=== PATIENT | female | born 1950 | race Caucasian/White ===

== ENCOUNTER → 2019-11-10 | Outpatient (CLI) | payer MEDICARE ==
[2019-11-10 12:10] LABS: Basophils % (A) 0 %; Eosinophils # (A) 0.2 k/uL (0-0.7); Eosinophils % (A) 2 %; HCT 43.9 % (34.0-46.0); HGB 14.2 gm/dL (11.4-16.0); Lymphocytes % (A) 24 %; MCH 30.4 pg (25.0-35.0); MCHC 32.5 g/dL (31.0-37.0); MCV 93.7 fL (80.0-100.0); Mean Platelet Volume 8.4; Monocytes # (A) 0.4 k/uL (0-1.0); Monocytes % (A) 5 %; Neutrophils # (A) 5.7 k/uL (1.3-7.7); Neutrophils % (A) 68 %; Platelet Count 742 k/uL (150-450); RBC 4.68 m/uL (3.80-5.40); RDW 14.1 % (11.5-15.5); WBC 8.4 k/uL (3.8-10.6)
[2019-11-10 15:45] LABS: African American GFR (CKD) 74.6 (60.0-200.0); Anion Gap 13.4 mmol/L (4.00-12.00); BUN/Creat Ratio 25.56 Ratio (12.00-20.00); Calcium 10.1 mg/dL (8.7-10.3); Carbon Dioxide 20.6 mmol/L (21.6-31.8); Non-African American GFR(CKD) 64.3 (60.0-200.0)
== END | disposition home or self-care (01) ==
LOC: LABWHC1 11:09
PROVIDERS: ATTEND Urology
DX: Z01.812 Encounter for preprocedural laboratory examination (principal); N20.1 Calculus of ureter; E11.9 Type 2 diabetes mellitus without complications
CPT/HCPCS: 36415; 80048; 85025; 87086

== ENCOUNTER 2019-11-12 12:41 | Day surgery (SDC) | payer MEDICARE ==
[2019-11-11 09:16] VITALS: BMI 35.4
--- NOTE | 2019-11-11 23:05 | P.HPIHPCON ---
History of Present Illness H&P Date: 11/12/19 Chief Complaint: Left ureteral stone Ms El is 69 yo female with hx of 5mm left ureteral stone, she is S/P left ureteral stent placement for septic stone. She presents today for definitive stone management. I discussed with her all surgical option. She agreed to proceed with Ureteroscopy. Discussed risk of bleeding, infection, and ureteral perforation. Discussed risk from anesthesia which includes heart attack, stroke, blood clots and even . She understood all risks agreed to proceed with left sided ureteroscopy, with holmium laser lithotripsy and stent exchange Consent for Procedure: I have explained the operation/procedure to the patient, including the risks, benefits, side effects, alternative therapies (including not receiving the proposed treatment or service), the likelihood of the patient achieving his/her goals, and potential recuperation problems for the procedure/sedation/analgesia, as well as any blood products, if indicated. I also explained to the patient the risks, benefits and side effects of the alternatives, as well as the risks related to not receiving the proposed procedure, care, treatment, or services. - Constitutional Constitutional: Denies chills, Denies fever - Cardiovascular Cardiovascular: Denies chest pain, Denies leg edema Past Medical History Past Medical History: Coronary Artery Disease (CAD), Diabetes Mellitus, GERD/Reflux, Hyperlipidemia, Hypertension, Myocardial Infarction (HI), Osteoarthritis (OA) Additional Past Medical History / Comment(s): UTI-on Rx, kidney stones, neuropathy-feet and legs, Last Myocardial Infarction Date:: 1992 History of Any Multi-Drug Resistant Organisms: None Reported Past Surgical History: Appendectomy, Heart Catheterization With Stent, Hysterectomy Additional Past Surgical History / Comment(s): one cardiac stent, left kidney stent Past Anesthesia/Blood Transfusion Reactions: No Reported Reaction Date of Last Stent Placement:: 1992 Smoking Status: Former smoker - Past Family History Mother Family Medical History: No Reported History Medications and Allergies Home Medications Medication Instructions Recorded Confirmed Type Aspirin 325 mg PO DAILY 11/11/19 11/11/19 History Cefuroxime Axetil [Ceftin] 500 mg PO DAILY 11/11/19 11/11/19 History Fenofibrate 160 mg PO DAILY 11/11/19 11/11/19 History Fish Oil/Dha/Epa [Fish Oil 1,200 1 each PO DAILY 11/11/19 11/11/19 History mg Fish Oil] Losartan(Dose Unknown) 1 tab PO HS 11/11/19 11/11/19 History Metoprolol(Dose Unknown) 1 tab PO QAM 11/11/19 11/11/19 History Pravastatin(Dose Unknown) 1 tab PO HS 11/11/19 11/11/19 History Tamsulosin [Flomax] 0.4 mg PO PC-SUPPER 11/11/19 11/11/19 History Vitamin D(Dose Unknown) 1 tab PO DAILY 11/11/19 11/11/19 History metFORMIN HCL [Glucophage] 500 mg PO BID 11/11/19 11/11/19 History rOPINIRole HCL [Requip] 2 mg PO HS 11/11/19 11/11/19 History traMADol HCL [Ultram] 50 mg PO BID PRN 11/11/19 11/11/19 History Allergies Allergy/AdvReac Type Severity Reaction Status Date / Time lisinopril Allergy Cough Verified 11/11/19 09:00 sulfamethoxazole Allergy Abdominal Verified 11/11/19 09:00 [From Bactrim] Pain,diarrhea trimethoprim [From Bactrim] Allergy Abdominal Verified 11/11/19 09:00 Pain,diarrhea Surgical - Exam - General well developed, well nourished, no distress - Respiratory normal expansion, normal respiratory effort - Abdomen Abdomen: soft, non tender - Psychiatric oriented to time, oriented to person, oriented to place Assessment and Plan Assessment: 69 yo female with hx of left sided ureteral stone -Cysto Left sided ureteroscopy, with holmium laser lithotripsy and stent exchange
[~2019-11-12 12:41] MED LIST: DEXAMETHASONE SOD PHOSPHATE 10 MG/ML 1 ML VIAL IV ONE; GENTAMICIN 100 MG in SODIUM CHLORIDE 0.9% 100 ML IVPB ONE; HYDROmorphone 0.5 MG/0.5 ML SYRINGE IVP PRN; LACTATED RINGERS 1,000 ML IV SCH; MIDAZOLAM 2 MG/2 ML VIAL IV PRN; ONDANSETRON 4 MG/2 ML VIAL IVP ONE
--- NOTE | 2019-11-12 13:11 | XR ---
KUB HISTORY: Left kidney stone, preop Frontal KUB and 2 images There is a double-J ureteral stent on the left. There is calcification overlying the proximal aspect of the stent at the approximate L3 transverse process level measuring approximately 1 cm. Vascular ca lcifications are noted within the pelvis. Bone mineralization is normal. No evident obstruction or pn eumoperitoneum. IMPRESSION: Indwelling double-J stent, left ureteral calculus
[2019-11-12 14:02] LABS: Glucose,Whole Blood 122 mg/dL (75-99)
[2019-11-12] MEDS ORDERED: fentaNYL (PF) 50 MCG/ML 2 ML AMP ONE (15:30)
[2019-11-12] MEDS ORDERED: SUCCINYLCHOLINE CHLORIDE 100 MG/5 ML SYR IV ONE (15:30)
[2019-11-12] MEDS ORDERED: MIDAZOLAM 2 MG/2 ML VIAL ONE (15:30)
[2019-11-12] MEDS ORDERED: PROPOFOL 10 MG/ML 20 ML VIAL IV ONE (15:30)
[2019-11-12] MEDS ORDERED: LIDOCAINE 1% INJ 10MG/ML (20 ML MDV) ONE (15:30)
[2019-11-12] MEDS ORDERED: ePHEDrine SULFATE/0.9% NACL/PF 50 MG/5 ML SYRINGE IV ONE (15:30)
[2019-11-12] MEDS ORDERED: IOPAMIDOL-370 50ML BTL MISCELLANE ONE (16:03)
[2019-11-12] MEDS ORDERED: LACTATED RINGERS 1,000 ML IV ONE (16:33)
--- NOTE | 2019-11-12 16:48 | P.OP ---
Date of Procedure: 11/12/19 Preoperative Diagnosis: Left ureteral calculi Postoperative Diagnosis: same Procedure(s) Performed: cystoscopy, left ureteroscopy, retrograde pyelogram,holmium laser lithotripsy, stone basketing and stent exchange Implants: 6-Slovenian by 24 cm stent Anesthesia: SANTA Surgeon: Huy Chino Pathology: other (ureteral stone for chemical analysis) Condition: stable Indications for Procedure: Ms El is 69 yo female with hx of 5mm left ureteral stone, she is S/P left ureteral stent placement for septic stone. She presents today for definitive stone management. I discussed with her all surgical option. She agreed to proceed with Ureteroscopy. Discussed risk but not limited to bleeding, infection, and ureteral perforation. Discussed risk from anesthesia which includes heart attack, stroke, blood clots and even . She understood all risks agreed to proceed with left sided ureteroscopy, with holmium laser lithotripsy and stent exchange Operative Findings: small distal ureteral stone, an additional larger proximal ureteral stone Description of Procedure: she was brought to the operating room general anesthesia was induced. She was prepped and draped in sterile fashion placed in dorsal lithotomy position. Cystoscope fitted with a 22 sheath was inserted per urethra cystoscopy was performed which showed no abnormality bladder. This stent grasper was used to remove the stents which was brought to the meatus, a 0.035 sensor wire was a dvanced through the stent and into the renal pelvis this was confirmed on fluoroscopy. a 6-Slovenian open-ended catheter was advanced over the wire, retrograde pyelogram was performed which showed a filling defect in the proximal ureter at the level of the stone. Next a semi-rigid ureteroscope was inserted through the urethra and advanced up the left ureteral orifice, ureteroscopy was performed. a smaller distal ureteral stone was encountered, this was basketed using these ZeroTip stone basket and removed. The ureteroscope was reinserted and advanced up to the proximal ureter at this time a large stone was encountered in the proximal ureter. Using the holmium laser the stone was fragmented into smaller fragments. The fragment was removed using the ZeroTip stone basket. Repeat ureteroscopy showed no injury to the ureter or any additional ureteral stone. A sensor wire was advanced through the ureteroscope into the renal pelvis, the ureteroscope was withdrawn with the wire in place. N ext a 65-90-Eojnxw access sheath was advanced over the wire and into to the renal pelvis. Next a flexible ureteroscope was advanced through the access sheath. Renoscopy was performed which showed no additional stones in the renal pelvis or within the calyces. Pullback ureteroscopy was performed which showed no additional stones in the ureter or injury to the ureter. Next a 0.035 sensor wire was advanced up the left ureter ureter. A ureteral stents was passed over the wire, the proximal curl was visualized under fluoroscopy and the distal curl was visualized using the cystoscope. The bladder was emptied and the end of the case. The stones were sent for stone analysis, the patient was awakened from anesthesia and taken to recovery in stable condition
[2019-11-12 17:01] VITALS: TEMP 98.3
[2019-11-12 17:06] VITALS: RESP 16
[2019-11-12 17:53] VITALS: BP 129/62; PULSE 62
--- NOTE | 2019-11-13 08:20 | FL ---
Fluoroscopy INDICATION: Pain FINDINGS: Fluoroscopy time: 12 seconds. Images obtained: 4. IMPRESSIONS: 1. Documentation of fluoroscopy.
== END 2019-11-12 18:12 | disposition home or self-care (01) ==
LOC: OR 12:41
PROVIDERS: ATTEND Urology
DX: N20.1 Calculus of ureter (principal); I25.10 Atherosclerotic heart disease of native coronary artery without angina pectoris; I10 Essential (primary) hypertension; E78.5 Hyperlipidemia, unspecified; I25.2 Old myocardial infarction; E11.42 Type 2 diabetes mellitus with diabetic polyneuropathy; K21.9 Gastro-esophageal reflux disease without esophagitis; M19.90 Unspecified osteoarthritis, unspecified site; Z87.442 Personal history of urinary calculi; Z90.49 Acquired absence of other specified parts of digestive tract; Z98.890 Other specified postprocedural states; Z90.710 Acquired absence of both cervix and uterus; Z95.5 Presence of coronary angioplasty implant and graft; Z87.891 Personal history of nicotine dependence; Z79.82 Long term (current) use of aspirin; Z79.84 Long term (current) use of oral hypoglycemic drugs; Z79.899 Other long term (current) drug therapy; Z88.8 Allergy status to other drugs, medicaments and biological substances; Z88.2 Allergy status to sulfonamides
CPT/HCPCS: 52356; 82365; 74018; C2625; C1769; C1894; C1758; J2250; J0690; J2001; J3010; J1580; J0330; J2704; Q9967

== ENCOUNTER → 2020-02-23 | Outpatient (CLI) | payer MEDICARE ==
--- NOTE | 2020-02-23 10:35 | XR ---
EXAMINATION TYPE: XR chest 2V DATE OF EXAM: 02/23/2020 COMPARISON: NONE HISTORY: Cough. Presurgical study. TECHNIQUE: Frontal and lateral views of the chest are obtained. FINDINGS: There is no focal air space opacity, pleural effusion, or pneumothorax seen. The cardiac silhouette size is within normal limits with atherosclerotic change in the aortic knob. The osseous structures are intact. IMPRESSION: No acute cardiopulmonary process.
[2020-02-23 10:50] LABS: Basophils # (A) 0.1 k/uL (0-0.2); Basophils % (A) 1 %; Eosinophils # (A) 0.2 k/uL (0-0.7); Eosinophils % (A) 2 %; HCT 49.1 % (34.0-46.0); HGB 16.1 gm/dL (11.4-16.0); Lymphocytes # (A) 2.2 k/uL (1.0-4.8); Lymphocytes % (A) 28 %; MCH 30.4 pg (25.0-35.0); MCHC 32.8 g/dL (31.0-37.0); MCV 92.9 fL (80.0-100.0); Mean Platelet Volume 7.5; Monocytes # (A) 0.4 k/uL (0-1.0); Monocytes % (A) 6 %; Neutrophils # (A) 4.6 k/uL (1.3-7.7); Neutrophils % (A) 61 %; Platelet Count 428 k/uL (150-450); RBC 5.29 m/uL (3.80-5.40); RDW 13.4 % (11.5-15.5); WBC 7.6 k/uL (3.8-10.6)
[2020-02-23 11:04] LABS: Calcium 10.1 mg/dL (8.4-10.2); Potassium 4.9 mmol/L (3.5-5.1)
== END | disposition home or self-care (01) ==
LOC: RADXRMAIN 10:06
PROVIDERS: ATTEND Urology
DX: Z01.818 Encounter for other preprocedural examination (principal); N81.9 Female genital prolapse, unspecified; N39.46 Mixed incontinence; I10 Essential (primary) hypertension; R05 Cough; R35.0 Frequency of micturition
CPT/HCPCS: 36415; 71046; 80048; 85025; 87086; 93005

== ENCOUNTER 2020-03-02 10:49 | Inpatient (IN) | payer MEDICARE ==
[2020-02-29 10:11] VITALS: BMI 35.3
[~2020-03-02 10:49] MED LIST changes: -GENTAMICIN 100 MG in SODIUM CHLORIDE 0.9% 100 ML IVPB ONE; -HYDROmorphone 0.5 MG/0.5 ML SYRINGE IVP PRN; -LACTATED RINGERS 1,000 ML IV SCH; -MIDAZOLAM 2 MG/2 ML VIAL IV PRN; +ONDANSETRON 4 MG/2 ML VIAL IVP PRN
[2020-03-02 11:38] LABS: Glucose,Whole Blood 109 mg/dL (75-99)
[2020-03-02] MEDS ORDERED: LACTATED RINGERS 1,000 ML IV ONE ×3 (13:41→16:22)
[2020-03-02] MEDS ORDERED: ROCURONIUM BROMIDE 10 MG/ML 5 ML VIAL IV ONE (13:42)
[2020-03-02] MEDS ORDERED: SUCCINYLCHOLINE CHLORIDE 100 MG/5 ML SYR IV ONE (13:42)
[2020-03-02] MEDS ORDERED: MIDAZOLAM 2 MG/2 ML VIAL ONE (13:42)
[2020-03-02] MEDS ORDERED: PROPOFOL 10 MG/ML 20 ML VIAL IV ONE (13:42)
[2020-03-02] MEDS ORDERED: HYDROmorphone (PF) 1 MG/ML ONE (13:42)
[2020-03-02] MEDS ORDERED: LIDOCAINE 1% INJ 10MG/ML (20 ML MDV) ONE (13:42)
[2020-03-02] MEDS ORDERED: PHENYLEPHRINE-0.9% NACL SYG 1 MG/10 ML SYRINGE ONE (13:42)
[2020-03-02] MEDS ORDERED: NEOSTIGMINE 1 MG/ML 10 ML VIAL ONE (13:42)
[2020-03-02] MEDS ORDERED: GLYCOPYRROLATE 0.2 MG/ML 2 ML VIAL ONE (13:42)
[2020-03-02] MEDS ORDERED: fentaNYL (PF) 50 MCG/ML 2 ML AMP ONE (13:42)
[2020-03-02] MEDS ORDERED: BUPIVACAINE (PF) 0.25% 30 ML VIAL SQ ONE ×3 (14:16→14:55)
--- NOTE | 2020-03-02 16:12 | P.OP ---
Date of Procedure: 03/02/20 Preoperative Diagnosis: Grade 3 midline cystocele and prolapse Postoperative Diagnosis: Grade 3 midline cystocele and prolapse Procedure(s) Performed: Robotic sacral colpopexy Implants: Y-shaped mesh Anesthesia: SANTA Surgeon: Jason Henderson Estimated Blood Loss (ml): 50 IV fluids (ml): 800 Urine output (ml): 100 Pathology: none sent Condition: stable Disposition: PACU Indications for Procedure: Prolapse of bladder Operative Findings: Moderate prolapse of the bladder into the vagina. Description of Procedure: Kayleen El was seen in the office for grade 4 midline cystocele and pelvic organ prolapse. She elected to undergo a robotic sacral colpopexy. All risks and complications were explained to her and a written informed consent was obta ined. She was taken to the OR and administered general anesthesia and placed in lithotomy position. She was given a Trendelenburg position. A Veress needle was used to gain access to the peritoneum and pneumoperitoneum was established to 20 mmHg. A 8 mm midline robotic camera port was placed. A 30 camera was introduced into the abdomen and multiple adhesions were noticed in the midline with omentum, and in the right lateral wall with small bowel and ascending colon. 3 additional 8 mm ports were placed forward to working arms and a fourth arm. A 12 mm assistant sales director port and 5 mm suction port was also placed. The surgery was started by performing adhesiolysis using monopolar scissors and fenestrated bipolar. All the omental adhesions were lysed and care was taken to maintain hemostasis. The the cecum and ascending colon was also mobilized and the distal small bowel was freed in the midline. Using a vaginal sizer with an assistant sales director placing upward traction on the vagina, the vagina was completely dissected from the bladder anteriorly. The dissection was carried inferiorly until at least 4-5 cm of vaginal muscle was exposed. Care was taken not to enter the bladder. Attention was then directed to the posterior vaginal wall and it was mobilized from the rectum for a similar length. The posterior dissection was carried down to the perineal body. Attention was then directed to the sacral promontory. The peritoneum over the sacral promontory was incised and the sacral promontory bone was completely exposed. The peritoneal incision was carried inferiorly to the vaginal incision taking care to protect the ureter and vessels. A Y-shaped mesh was then introduced into the abdomen and the limbs of the Y were cut to appropriate length. The posterior mesh was sutured to the posterior wall of the vagina with 4 separate sutures of Ethibond taking care not to go through the vaginal wall. Once the posterior mesh was securely placed, the anterior Lembert the mesh was sutured to the anterior vaginal wall with 6 interrupted sutures. The sizer was then removed from the vagina and good secure placement of the mesh on the vagina wall was confirmed. The assistant sales director was then asked to place a firm superior traction of the vagina with the sizer, and a single Lembert the mesh was sutured to the sacral promontory with 6 interrupted sutures of Ethibond. Hemostasis was confirmed. The sizer was removed from the vagina and good fixation of the vagina was confirmed to the sacral promontory. The peritoneum was then closed using 2 we'll continuous running sutures to completely exclude the mesh from the peritoneal cavity. Prior to closing the peritoneum the bladder was insufflated to 150 mL of saline and absence of any bladder perforation was confirmed. All the sutures were removed, all the mesh pieces were removed and a final count was obtained. The ports of the robot were removed and abdominal incisions were closed with 4-0 Monocryl. A vaginal examination was performed to confirm resolution of the cystocele and a vaginal pack was placed. The patient was taken to recovery in stable condition
[2020-03-02 16:34] LABS: Glucose,Whole Blood 175 mg/dL (75-99)
[2020-03-02] MEDS: HYDROmorphone 0.5 MG/0.5 ML SYRINGE IVP PRN ×2 (16:37→16:46)
[2020-03-02] MEDS ORDERED: MIDAZOLAM 2 MG/2 ML VIAL IVP ONE (16:57)
[2020-03-02] MEDS ORDERED: MAG HYDROX/AL HYDROX/SIMETH 30 ML CUP PO PRN (17:44)
[2020-03-02] MEDS ORDERED: ONDANSETRON 4 MG/2 ML VIAL IVP PRN (17:44)
[2020-03-02] MEDS: LACTATED RINGERS 1,000 ML IV SCH ×2 (18:08→23:59)
[2020-03-02] MEDS: DEXTROSE 5%-0.45% NACL 1,000 ML IV SCH (19:18)
[2020-03-02] MEDS: KETOROLAC 30 MG/ML 1 ML VIAL IVP PRN (19:43)
[2020-03-02 21:04] LABS: Glucose,Whole Blood 176 mg/dL (75-99)
[2020-03-02] MEDS: LOSARTAN 25 MG TAB PO SCH (21:07)
[2020-03-02] MEDS: HYDROmorphone 1 MG/ML 1 ML SYRINGE IVP PRN (21:08)
[2020-03-02] MEDS: metFORMIN 500 MG TAB PO SCH (21:08)
[2020-03-03] MEDS: HYDROmorphone 1 MG/ML 1 ML SYRINGE IVP PRN ×4 (00:03→17:51)
[2020-03-03] MEDS: DEXTROSE 5%-0.45% NACL 1,000 ML IV SCH ×3 (02:00→20:06)
[2020-03-03] MEDS: KETOROLAC 30 MG/ML 1 ML VIAL IVP PRN ×2 (06:31→20:07)
[2020-03-03 07:08] LABS: Glucose,Whole Blood 150 mg/dL (75-99)
--- NOTE | 2020-03-03 08:22 | P.PN ---
Subjective Progress Note Date: 03/03/20 This is the patients pod 1 from a robotic sacral colpopexy. She is doing well SHe is having some abdominal discomfort from the pneumoperitoneum and lysis of adhesions. Her abdomen is soft Her urine is clear. Her VSS I will remove her packing, ivf and menezes. Depnding on how she voids and feels as to when she will be d/c home. Objective - Vital Signs Vital signs: Vital Signs Temp 97.5 F L 03/02/20 20:36 Pulse 59 L 03/02/20 20:36 Resp 18 03/02/20 20:36 BP 178/77 03/02/20 20:36 Pulse Ox 93 L 03/02/20 20:36 Intake & Output 03/02/20 03/03/20 03/03/20 18:59 06:59 18:59 Intake Total 1450 1465 Output Total 515 900 Balance 935 565 Weight 87.5 kg 87.5 kg Intake: IV 1450 Intake, IV Titration 1175 Amount Dextrose 5%-0.45% NaCl 1, 1125 000 ml @ 125 mls/hr IV . Q8H JESSIE Rx#:[id number] ceFAZolin 2 gm In Sodium 50 Chloride 0.9% 50 ml @ 100 mls/hr IVPB Q8H JESSIE Rx#: [id number] Oral 290 Output: Urine 510 900 Uretheral (Menezes) 900 Estimated Blood Loss 5 Other: Voiding Method Indwelling Catheter - Labs Labs: Abnormal Lab Results - Last 24 Hours (Table) 03/02/20 03/02/20 03/02/20 Range/Units 11:20 16:32 21:03 POC Glucose (mg/dL) 109 H 175 H 176 H (75-99) mg/dL 03/03/20 Range/Units 07:06 POC Glucose (mg/dL) 150 H (75-99) mg/dL
[2020-03-03] MEDS: metFORMIN 500 MG TAB PO SCH ×2 (08:30→20:08)
[2020-03-03] MEDS: CHOLECALCIFEROL 1,000 UNIT TAB PO SCH (08:30)
[2020-03-03] MEDS: PRAVASTATIN SODIUM 40 MG TAB PO SCH (08:31)
[2020-03-03] MEDS: METOPROLOL TARTRATE 50 MG TAB PO SCH ×2 (08:31→08:46)
[2020-03-03] MEDS: FENOFIBRATE 160 MG TAB PO SCH (08:31)
[2020-03-03] MEDS: PANTOPRAZOLE 40 MG TABLET PO SCH (08:31)
[2020-03-03] MEDS: NON FORMULARY DRUG (Mirabegron [Myrbetriq] 50 MG) PO SCH (08:46)
[2020-03-03 10:52] LABS: Glucose,Whole Blood 145 mg/dL (75-99)
[2020-03-03 17:02] LABS: Glucose,Whole Blood 153 mg/dL (75-99)
[2020-03-03] MEDS: LOSARTAN 25 MG TAB PO SCH (20:08)
[2020-03-03 20:13] LABS: Glucose,Whole Blood 164 mg/dL (75-99)
[2020-03-03] MEDS: LACTATED RINGERS 1,000 ML IV SCH (20:17)
[2020-03-04] MEDS: DEXTROSE 5%-0.45% NACL 1,000 ML IV SCH (03:42)
[2020-03-04 07:14] LABS: Glucose,Whole Blood 156 mg/dL (75-99)
[2020-03-04] MEDS: HYDROmorphone 1 MG/ML 1 ML SYRINGE IVP PRN (08:20)
[2020-03-04] MEDS: FENOFIBRATE 160 MG TAB PO SCH (08:23)
[2020-03-04] MEDS: NON FORMULARY DRUG (Mirabegron [Myrbetriq] 50 MG) PO SCH (08:23)
[2020-03-04] MEDS: PANTOPRAZOLE 40 MG TABLET PO SCH (08:23)
[2020-03-04] MEDS: metFORMIN 500 MG TAB PO SCH (08:23)
[2020-03-04] MEDS: CHOLECALCIFEROL 1,000 UNIT TAB PO SCH (08:23)
[2020-03-04] MEDS: PRAVASTATIN SODIUM 40 MG TAB PO SCH (08:23)
[2020-03-04] MEDS: METOPROLOL TARTRATE 50 MG TAB PO SCH (08:23)
[2020-03-04] MEDS ORDERED: IBUPROFEN 600 MG TAB PO PRN (08:52)
[2020-03-04 11:05] LABS: Glucose,Whole Blood 127 mg/dL (75-99)
[2020-03-04] MEDS ORDERED: HYDROcodone/APAP 5-325MG 1 EACH TAB PO PRN ×2 (11:06)
--- NOTE | 2020-03-04 11:58 | P.DS ---
Providers Date of admission: 03/04/20 09:13 Attending physician: Jason Henderson Primary care physician: Physician Nonstaff Hospital Course: The patient is 69. She has grade 4 vaginal prolapse. performed a robotic sacral colpoplasty 48 hours ago. She did well postoperatively other than some discomfort from the robotic surgery. This is subsided. Her abdomen was soft. The vaginal packing has been removed. The catheter is being removed and she is voiding without difficulty. She'll be discharged home today. She'll follow-up in our office later next week. She'll be given a prescription of some [place] for postoperative discomfort. Postoperative instructions of been given. She's been instructed to contact us with any problems. She understands and consents to this discharge Patient Condition at Discharge: Good Plan - Discharge Summary Discharge Rx Participant: Yes New Discharge Prescriptions: New HYDROcodone/APAP 5-325MG [[place] 5-325] 1 tab PO Q4HR PRN #14 tab PRN Reason: Pain No Action rOPINIRole HCL [Requip] 2 mg PO HS metFORMIN HCL [Glucophage] 500 mg PO BID Aspirin 325 mg PO DAILY Fenofibrate 160 mg PO DAILY Losartan(Dose Unknown) 1 tab PO HS traMADol HCL [Ultram] 50 mg PO BID PRN PRN Reason: Pain Fish Oil/Dha/Epa [Fish Oil 1,200 mg Fish Oil] 1 each PO DAILY Vitamin D(Dose Unknown) 1 tab PO DAILY Cephalexin [Keflex] 500 mg PO DAILY Mirabegron [Myrbetriq] 50 mg PO DAILY Metoprolol Tartrate [Lopressor] 100 mg PO DAILY Pravastatin Sodium [Pravachol] 40 mg PO DAILY Omeprazole (Unk.Dose) 1 tab PO DAILY Discharge Medication List Aspirin 325 mg PO DAILY 11/11/19 [History] Fenofibrate 160 mg PO DAILY 11/11/19 [History] Fish Oil/Dha/Epa [Fish Oil 1,200 mg Fish Oil] 1 each PO DAILY 11/11/19 [History] Losartan(Dose Unknown) 1 tab PO HS 11/11/19 [History] Vitamin D(Dose Unknown) 1 tab PO DAILY 11/11/19 [History] metFORMIN HCL [Glucophage] 500 mg PO BID 11/11/19 [History] rOPINIRole HCL [Requip] 2 mg PO HS 11/11/19 [History] traMADol HCL [Ultram] 50 mg PO BID PRN 11/11/19 [History] Cephalexin [Keflex] 500 mg PO DAILY 02/29/20 [History] Metoprolol Tartrate [Lopressor] 100 mg PO DAILY 02/29/20 [History] Mirabegron [Myrbetriq] 50 mg PO DAILY 02/29/20 [History] Omeprazole (Unk.Dose) 1 tab PO DAILY 02/29/20 [History] Pravastatin Sodium [Pravachol] 40 mg PO DAILY 02/29/20 [History] HYDROcodone/APAP 5-325MG [[place] 5-325] 1 tab PO Q4HR PRN #14 tab 03/04/20 [Rx] Follow up Appointment(s)/Referral(s): Huy Chino MD [STAFF PHYSICIAN] - 03/10/20 Discharge Disposition: HOME SELF-CARE
[2020-03-04 12:16] VITALS: BP 135/63; PULSE 68; RESP 20; TEMP 99.2
== END 2020-03-04 16:21 | disposition home or self-care (01) | DRG 748 ==
LOC: OR 10:49 → 5NMEDONC 17:06 → OR 03-03 08:56 → OBSVTOIN 03-04 09:13
PROVIDERS: ADMIT Urology; ATTEND Urology
PROC: 0UUG4JZ Supplement Vagina with Synthetic Substitute, Percutaneous Endoscopic Approach (ICD-10-PCS; principal; 2020-03-02 11:50)
PROC: 0USG4ZZ Reposition Vagina, Percutaneous Endoscopic Approach (ICD-10-PCS; principal; 2020-03-02 11:50)
PROC: 8E0W4CZ Robotic Assisted Procedure of Trunk Region, Percutaneous Endoscopic Approach (ICD-10-PCS; principal; 2020-03-02 11:50)
DX: N81.4 Uterovaginal prolapse, unspecified (principal); E78.5 Hyperlipidemia, unspecified; N39.46 Mixed incontinence; K66.0 Peritoneal adhesions (postprocedural) (postinfection); I10 Essential (primary) hypertension; I25.10 Atherosclerotic heart disease of native coronary artery without angina pectoris; Z87.442 Personal history of urinary calculi
CPT/HCPCS: 86850; 86900; 86901